=== PATIENT | male | born 1950 | race African-American/Black ===

== ENCOUNTER 2017-02-08 18:34 | Inpatient (IN) | payer MEDICARE, OTHER ==
[~2017-02-08] VITALS: Ht 162.6 cm; Wt 65.8 kg
[~2017-02-08 18:34] MED LIST: ATOR40TA70 PO; CALC667C4 PO; CINA30 PO; COR25 PO; FEBU40TA PO; FOLI1TAB33 PO; FOLI1TAB87 PO; HYDR-4135 PO; NIFE90TA2 PO; SEVE800T PO; SIMV20TA6 PO; WARF5TAB73 PO
[2017-02-09 02:12] LABS: HEMATOCRIT. 37.5 % (42.0-52.0); HEMOGLOBIN. 11.4 g/dL (14.0-18.0); MEAN CORPUSCULAR HGB CONC 30.5 g/dL (31.0-37.0); MEAN CORPUSCULAR VOLUME 85.4 fL (80.0-94.0); MEAN PLATELET VOLUME 6.8 fl (7.4-10.4); PLATELET 155 x1000/uL (130-400); RED BLOOD CELL COUNT 4.39 mill/uL (4.7-6.1); RED CELL DISTRIBUTION WIDTH 19.3 % (11.6-14.6); WHITE BLOOD COUNT 16.1 x1000/uL (4.5-11.0)
[2017-02-09 02:13] LABS: DIFFERENTIAL COMMENT 1
[2017-02-09 02:30] LABS: ALANINE AMINOTRANSFERASE 14 IU/L (13-61); ALBUMIN 2.4 g/dL (3.4-5.0); ANION GAP 14; CALCIUM 9.6 mg/dL (8.5-10.1); CARBON DIOXIDE 31 mEq/L (21-32); CHLORIDE 99 mEq/L (98-107); INDEX HEMOLYSI 1 (1-3); INDEX ICTERIC 1 (1-4); INDEX LIPEMIC 1 (1-3); TROPONIN I 0.21 ng/mL (0.00-0.04); UREA NITROGEN BLOOD 23 mg/dL (7-21); eGFR 13 mL/min (>60)
[2017-02-09 03:21] LABS: HYPOCHROMASIA 1+; NUCLEATED RED BLOOD CELLS 1 /100 WBC; PLATELET ESTIMATE NORMAL
[2017-02-09 03:22] LABS: ANISOCYTOSIS 2+
[2017-02-09] MEDS ORDERED: ACETAMINOPHEN 325MG TABLET PO ONE (05:00)
[2017-02-09 13:30] VITALS: BP 128/81
[2017-02-09 14:00] VITALS: BP 128/81
[2017-02-09 16:00] VITALS: BP 136/97
[2017-02-09 17:12] LABS: INR 1.3
[2017-02-09] MEDS ORDERED: HYDROCODONE/ACETAMINOPHEN 5/325MG TABLET PO PRN (17:15)
[2017-02-09] MEDS ORDERED: CALCIUM ACETATE 667MG CAPSULE PO NR (17:15)
[2017-02-09] MEDS: SEVELAMER CARBONATE 800 MG TABLET PO SCH (18:33)
[2017-02-09] MEDS: CINACALCET HCL 30MG TABLET PO SCH (18:33)
[2017-02-09] MEDS: CALCIUM ACETATE 667MG CAPSULE PO SCH (18:33)
[2017-02-09] MEDS ORDERED: WARFARIN SODIUM 3MG TABLET PO SCH (18:36)
[2017-02-09 20:00] VITALS: BP 120/88
[2017-02-09] MEDS: HYDRALAZINE HCL 50MG TABLET PO SCH ×2 (21:00→21:50)
[2017-02-09] MEDS: ATORVASTATIN CALCIUM 40MG TABLET PO SCH (21:47)
[2017-02-09] MEDS: CARVEDILOL 25MG TABLET PO SCH (21:50)
[2017-02-10] VITALS: BP 106/74
[2017-02-10 04:00] VITALS: BP 98/72
[2017-02-10 08:00] VITALS: BP 112/71
[2017-02-10 08:11] LABS: HEMATOCRIT. 34.2 % (42.0-52.0); HEMOGLOBIN. 10.3 g/dL (14.0-18.0); MEAN CORPUSCULAR HEMOGLOBIN 25.5 pg (28.0-32.0); MEAN CORPUSCULAR HGB CONC 30.1 g/dL (31.0-37.0); MEAN CORPUSCULAR VOLUME 84.7 fL (80.0-94.0); MEAN PLATELET VOLUME 7.2 fl (7.4-10.4); PLATELET 159 x1000/uL (130-400); RED BLOOD CELL COUNT 4.04 mill/uL (4.7-6.1); RED CELL DISTRIBUTION WIDTH 19.5 % (11.6-14.6); WHITE BLOOD COUNT 25.8 x1000/uL (4.5-11.0)
[2017-02-10 08:13] LABS: INR 1.4; PROTHROMBIN TIME 14.7 sec
[2017-02-10 08:18] LABS: DIFFERENTIAL COMMENT 1
[2017-02-10 08:24] LABS: CALCIUM 9.8 mg/dL (8.5-10.1); PHOSPHORUS 7.5 mg/dL (2.5-4.9)
[2017-02-10] MEDS: HYDRALAZINE HCL 50MG TABLET PO SCH ×2 (09:00→21:00)
[2017-02-10] MEDS: CARVEDILOL 25MG TABLET PO SCH ×2 (09:00→21:00)
[2017-02-10] MEDS: CALCIUM ACETATE 667MG CAPSULE PO SCH ×3 (09:11→17:21)
[2017-02-10] MEDS: ALLOPURINOL 100 MG TABLET PO SCH (09:11)
[2017-02-10] MEDS: CINACALCET HCL 30MG TABLET PO SCH (09:11)
[2017-02-10] MEDS: FOLIC ACID/VITAMIN B COMP W-C TABLET PO SCH (09:11)
[2017-02-10] MEDS: SEVELAMER CARBONATE 800 MG TABLET PO SCH ×3 (09:12→17:23)
[2017-02-10] MEDS ORDERED: FLAGYL XX SCH (11:15)
[2017-02-10] MEDS ORDERED: *ZOSYN XX SCH (11:15)
[2017-02-10] MEDS ORDERED: ACETAMINOPHEN 650MG/20.3ML UDC PO PRN (11:15)
[2017-02-10 12:00] VITALS: BP 100/74
[2017-02-10 12:06] LABS: ANISOCYTOSIS 1+
[2017-02-10 12:07] LABS: PLATELET ESTIMATE NORMAL
[2017-02-10 16:00] VITALS: BP 112/78
[2017-02-10] MEDS ORDERED: VANCOMYCIN 1250MG in DEXTROSE 5% WATER 250ML IV NR (16:00)
[2017-02-10] MEDS ORDERED: WARFARIN SODIUM 3MG TABLET PO SCH (18:00)
[2017-02-10 20:00] VITALS: BP 106/70
[2017-02-10] MEDS: PIPERACILLIN/TAZ 2.25G PREMIX 50 ML IV SCH (21:01)
[2017-02-10] MEDS: ATORVASTATIN CALCIUM 40MG TABLET PO SCH (21:02)
[2017-02-10] MEDS: METRONIDAZOLE 500 MG PREMIX 100 ML IV SCH (21:58)
[2017-02-11] VITALS (9 sets, daily range): BP systolic 83–112; BP diastolic 51–80
[2017-02-11] MEDS: METRONIDAZOLE 500 MG PREMIX 100 ML IV SCH ×3 (05:38→21:23)
[2017-02-11 06:10] LABS: CALCIUM 9.6 mg/dL (8.5-10.1)
[2017-02-11 06:21] LABS: HEMATOCRIT. 33.6 % (42.0-52.0); HEMOGLOBIN. 9.9 g/dL (14.0-18.0); MEAN CORPUSCULAR HEMOGLOBIN 25.6 pg (28.0-32.0); MEAN CORPUSCULAR HGB CONC 29.6 g/dL (31.0-37.0); MEAN CORPUSCULAR VOLUME 86.5 fL (80.0-94.0); MEAN PLATELET VOLUME 7.6 fl (7.4-10.4); PLATELET 134 x1000/uL (130-400); RED BLOOD CELL COUNT 3.88 mill/uL (4.7-6.1); RED CELL DISTRIBUTION WIDTH 19.6 % (11.6-14.6); WHITE BLOOD COUNT 29.2 x1000/uL (4.5-11.0)
[2017-02-11 06:50] LABS: DIFFERENTIAL COMMENT 1
[2017-02-11 07:17] LABS: INR 1.8; PROTHROMBIN TIME 19.1 sec
[2017-02-11] MEDS: HYDRALAZINE HCL 50MG TABLET PO SCH ×2 (08:21→21:00)
[2017-02-11] MEDS: CARVEDILOL 25MG TABLET PO SCH ×2 (08:32→21:00)
[2017-02-11] MEDS: PIPERACILLIN/TAZ 2.25G PREMIX 50 ML IV SCH ×3 (08:32→22:25)
[2017-02-11] MEDS: CALCIUM ACETATE 667MG CAPSULE PO SCH ×3 (08:32→17:23)
[2017-02-11] MEDS: CINACALCET HCL 30MG TABLET PO SCH (08:32)
[2017-02-11] MEDS: SEVELAMER CARBONATE 800 MG TABLET PO SCH ×3 (08:32→17:22)
[2017-02-11] MEDS: FOLIC ACID/VITAMIN B COMP W-C TABLET PO SCH (08:32)
[2017-02-11] MEDS: ALLOPURINOL 100 MG TABLET PO SCH (08:34)
[2017-02-11] MEDS: SODIUM HYPOCHLORITE 0.125% 473ML SOLUTION TOP PRN (08:37)
[2017-02-11 10:53] LABS: ANISOCYTOSIS 1+; PLATELET ESTIMATE NORMAL
[2017-02-11] MEDS ORDERED: SODIUM CHLORIDE 0.9% 250ML IV SOLN IV NR (17:13)
[2017-02-11] MEDS ORDERED: WARFARIN SODIUM 3MG TABLET PO NR (18:00)
[2017-02-11] MEDS ORDERED: EPOETIN ALFA 10000UNITS/ML VIAL SUBCUT SCH (21:00)
[2017-02-11] MEDS: ATORVASTATIN CALCIUM 40MG TABLET PO SCH (21:22)
[2017-02-12] VITALS (35 sets, daily range): BP systolic 56–137; BP diastolic 24–92
[2017-02-12] MEDS: PIPERACILLIN/TAZ 2.25G PREMIX 50 ML IV SCH ×2 (05:14→14:04)
[2017-02-12] MEDS: SODIUM HYPOCHLORITE 0.125% 473ML SOLUTION TOP PRN (05:14)
[2017-02-12] MEDS: METRONIDAZOLE 500 MG PREMIX 100 ML IV SCH (05:56)
[2017-02-12] MEDS: CALCIUM ACETATE 667MG CAPSULE PO SCH ×2 (08:42→12:16)
[2017-02-12] MEDS: FOLIC ACID/VITAMIN B COMP W-C TABLET PO SCH (08:42)
[2017-02-12] MEDS: SEVELAMER CARBONATE 800 MG TABLET PO SCH ×2 (08:42→12:16)
[2017-02-12] MEDS: CARVEDILOL 25MG TABLET PO SCH ×2 (08:43→20:30)
[2017-02-12] MEDS: HYDRALAZINE HCL 50MG TABLET PO SCH ×2 (08:43→20:27)
[2017-02-12] MEDS: ALLOPURINOL 100 MG TABLET PO SCH (08:45)
[2017-02-12] MEDS ORDERED: SODIUM CHLORIDE 0.9% 1000ML BAG (SEPSIS BOLUS) IV ONE (11:45)
[2017-02-12] MEDS ORDERED: SODIUM CHLORIDE 0.9% 250 ML IV SCH (12:00)
[2017-02-12 12:11] LABS: HEMATOCRIT. 31.9 % (42.0-52.0); HEMOGLOBIN. 9.6 g/dL (14.0-18.0); MEAN CORPUSCULAR HEMOGLOBIN 25.3 pg (28.0-32.0); MEAN CORPUSCULAR VOLUME 84.5 fL (80.0-94.0); MEAN PLATELET VOLUME 7.2 fl (7.4-10.4); PLATELET 153 x1000/uL (130-400); RED BLOOD CELL COUNT 3.78 mill/uL (4.7-6.1); RED CELL DISTRIBUTION WIDTH 19.3 % (11.6-14.6); WHITE BLOOD COUNT 28.5 x1000/uL (4.5-11.0)
[2017-02-12 12:12] LABS: DIFFERENTIAL COMMENT 1
[2017-02-12 12:22] LABS: CALCIUM 8.9 mg/dL (8.5-10.1)
[2017-02-12 12:24] LABS: PROTHROMBIN TIME 55.7 sec
[2017-02-12 12:41] LABS: INR 5.3
[2017-02-12] MEDS ORDERED: VANCOMYCIN 500 MG PREMIX 100 ML IV SCH (13:00)
[2017-02-12 13:33] LABS: ANISOCYTOSIS 1+; PLATELET ESTIMATE NORMAL
[2017-02-12] MEDS ORDERED: MEROPENEM 500 MG in SODIUM CHLORIDE 0.9% 50 ML IV SCH (16:00)
[2017-02-12 18:46] LABS: CREATINE KINASE 768 IU/L (39-308); INDEX HEMOLYSI 1 (1-3)
[2017-02-12] MEDS: ATORVASTATIN CALCIUM 40MG TABLET PO SCH (21:00)
[2017-02-12] MEDS: NOREPINEPHRINE 8 MG in DEXT 5% WATER 242 ML IV PRN (23:51)
[2017-02-13] VITALS (88 sets, daily range): BP systolic 34–209; BP diastolic 19–117
[2017-02-13 04:30] LABS: CALCIUM 9.3 mg/dL (8.5-10.1)
[2017-02-13 04:33] LABS: MAGNESIUM 2.5 mg/dL (1.8-2.4)
[2017-02-13 04:34] LABS: HEMATOCRIT. 30.8 % (42.0-52.0); HEMOGLOBIN. 9.1 g/dL (14.0-18.0); MEAN CORPUSCULAR HEMOGLOBIN 25.1 pg (28.0-32.0); MEAN CORPUSCULAR HGB CONC 29.7 g/dL (31.0-37.0); MEAN CORPUSCULAR VOLUME 84.5 fL (80.0-94.0); MEAN PLATELET VOLUME 7.8 fl (7.4-10.4); PLATELET 153 x1000/uL (130-400); RED BLOOD CELL COUNT 3.64 mill/uL (4.7-6.1); RED CELL DISTRIBUTION WIDTH 19.2 % (11.6-14.6); WHITE BLOOD COUNT 27.1 x1000/uL (4.5-11.0)
[2017-02-13 04:35] LABS: DIFFERENTIAL COMMENT 1
[2017-02-13 04:53] LABS: INR 3.3; PARTIAL THROMBOPLASTIN TIME 55.5 sec (24.0-34.0); PROTHROMBIN TIME 34.4 sec
[2017-02-13] MEDS: CALCIUM ACETATE 667MG CAPSULE PO SCH ×3 (07:00→16:14)
[2017-02-13] MEDS: SEVELAMER CARBONATE 800 MG TABLET PO SCH ×3 (07:00→16:14)
[2017-02-13] MEDS: HYDRALAZINE HCL 50MG TABLET PO SCH (08:15)
[2017-02-13] MEDS: CARVEDILOL 25MG TABLET PO SCH (08:15)
[2017-02-13] MEDS: ALLOPURINOL 100 MG TABLET PO SCH (08:16)
[2017-02-13] MEDS: FOLIC ACID/VITAMIN B COMP W-C TABLET PO SCH (08:16)
[2017-02-13] MEDS: NOREPINEPHRINE 8 MG in DEXT 5% WATER 242 ML IV PRN ×2 (10:02→15:51)
[2017-02-13 10:10] LABS: ANISOCYTOSIS 1+; PLATELET ESTIMATE NORMAL
[2017-02-13 10:11] LABS: TARGET CELLS 1+
[2017-02-13 10:31] LABS: INR 2.7
[2017-02-13] MEDS ORDERED: BACITRACIN ZINC 15GM TUBE TOP ONE (10:40)
[2017-02-13] MEDS ORDERED: BUPIVACAINE/EPINEPH/PF 0.25%/0.0005 10ML ONE ×2 (10:40→10:41)
[2017-02-13] MEDS ORDERED: BACITRACIN 50,000 UNITS/VIAL ONE (10:42)
[2017-02-13] MEDS ORDERED: NORMAL SALINE 0.9% 10 ML SYR ONE (10:47)
[2017-02-13] MEDS ORDERED: EPINEPHRINE 0.1MG/ML (1:10,000) 10ML SYR ONE ×5 (11:19→12:57)
[2017-02-13] MEDS ORDERED: CALCIUM CHLORIDE 1GM/10ML SYR IV ONE ×2 (11:19→12:09)
[2017-02-13] MEDS ORDERED: DEXTROSE 50% WATER 50ML SYRINGE IV ONE ×2 (11:19→13:16)
[2017-02-13] MEDS ORDERED: ONDANSETRON HCL 4MG/2ML VIAL IV PRN (11:30)
[2017-02-13] MEDS ORDERED: MORPHINE SULFATE 4 MG/ML CPJ (NOT FOR IM USE) IV PRN (11:30)
[2017-02-13] MEDS ORDERED: MORPHINE SULFATE 2 MG/ML CPJ (NOT FOR IM USE) IV PRN (11:30)
[2017-02-13] MEDS ORDERED: ALBUMIN HUMAN 12.5G/250ML (5%) IV ONE (11:31)
[2017-02-13] MEDS ORDERED: SODIUM BICARBONATE 8.4% 1 MEQ/ML 50ML SYR IV ONE ×2 (12:09→12:23)
[2017-02-13] MEDS ORDERED: ATROPINE SULFATE 0.1MG/ML 10ML DISP.SYRIN ONE ×3 (12:10→12:28)
[2017-02-13] MEDS ORDERED: NITROGLYCERIN 50MG PREMIX 250 ML IV ONE (12:10)
[2017-02-13] MEDS ORDERED: SODIUM BICARBONATE 4% (2.4MEQ) 5ML VIAL IV ONE (12:22)
[2017-02-13] MEDS ORDERED: AMIODARONE IV SCH (12:30)
[2017-02-13] MEDS ORDERED: DEXTROSE 5% IV SCH (12:30)
[2017-02-13] MEDS ORDERED: WATER IV SCH (12:30)
[2017-02-13] MEDS ORDERED: EPINEPHRINE 1 MG in SODIUM CHLORIDE 0.9% 250 ML IV ONE (12:45)
[2017-02-13] MEDS ORDERED: SODIUM BICARBONATE 7.5% 0.9 MEQ/ML 50ML SYR IV ONE ×2 (12:56→14:24)
[2017-02-13] MEDS ORDERED: SODIUM CHLORIDE 0.9% IV ONE (13:30)
[2017-02-13] MEDS ORDERED: VASOPRESSIN IV ONE (13:30)
[2017-02-13 14:21] LABS: BG BASE EXCESS -16.3 mmol/L (-2.0-2.0); BG CARBOXYHEMOGLOBIN 0.3 % (0.5-1.5); BG DEOXYHEMOGLOBIN 11.4 % (0.0-5.0); BG FRACTION INSPIRED OXYGEN 100; BG HCO3 ACT 14.6 mmol/L (22.0-26.0); BG METHEMOGLOBIN 0.1 % (0.0-1.5); BG OXYGEN SATURATION 88.6 % (92.0-98.5); BG OXYHEMOGLOBIN 88.2 % (94.0-97.0); BG PCO2 59.5 mmHg (35.0-45.0); BG PH 7.008 (7.350-7.450); BG PO2 83.2 mmHg (75.0-100.0); BG SAMPLE SITE RIGHT BRACHIAL; BG TIDAL VOLUME(mL) 450 mL; BG TOTAL HEMOGLOBIN 10.5 g/dL (12.0-18.0); BG VENT MODE VENT - A/C; BG VENT RATE 14 set
[2017-02-13] MEDS ORDERED: ATROPINE SULFATE 1MG/10ML SYR ONE (14:24)
[2017-02-13] MEDS ORDERED: DOPAMINE 400MG IN DEXT 5% 250ML PREMIX IV ONE (14:24)
[2017-02-13] MEDS ORDERED: AMIODARONE HCL 50MG/ML 3ML VIAL IV ONE (14:24)
[2017-02-13 14:42] LABS: HEMATOCRIT. 35.9 % (42.0-52.0); HEMOGLOBIN. 10.6 g/dL (14.0-18.0); MEAN CORPUSCULAR HEMOGLOBIN 27.1 pg (28.0-32.0); MEAN CORPUSCULAR HGB CONC 29.5 g/dL (31.0-37.0); MEAN PLATELET VOLUME 7.8 fl (7.4-10.4); PLATELET 88 x1000/uL (130-400); RED CELL DISTRIBUTION WIDTH 17.8 % (11.6-14.6); WHITE BLOOD COUNT 22.3 x1000/uL (4.5-11.0)
[2017-02-13] MEDS ORDERED: DOPAMINE 400MG PREMIX 250 ML IV PRN ×2 (14:45→16:15)
[2017-02-13 14:48] LABS: INR 1.7; PROTHROMBIN TIME 17.6 sec
[2017-02-13 14:49] LABS: DIFFERENTIAL COMMENT 1
[2017-02-13 15:01] LABS: MAGNESIUM 2.4 mg/dL (1.8-2.4)
[2017-02-13 15:07] LABS: ANISOCYTOSIS 1+; PLATELET ESTIMATE DECREASED
[2017-02-13 15:13] LABS: PHOSPHORUS 9.6 mg/dL (2.5-4.9); TROPONIN I 4.3 ng/mL (0.00-0.04)
[2017-02-13] MEDS ORDERED: SODIUM BICARBONATE 8.4% 1 MEQ/ML 50ML SYR IV SCH (15:30)
[2017-02-13 15:31] LABS: CHLORIDE 99 mEq/L (98-107); INDEX HEMOLYSI 2 (1-3); INDEX ICTERIC 1 (1-4); INDEX LIPEMIC 1 (1-3)
[2017-02-13 15:39] LABS: ALANINE AMINOTRANSFERASE 94 IU/L (13-61); ALBUMIN 2.3 g/dL (3.4-5.0); ANION GAP 31; CALCIUM 9.9 mg/dL (8.5-10.1); CARBON DIOXIDE 16 mEq/L (21-32); UREA NITROGEN BLOOD 34 mg/dL (7-21); eGFR 15 mL/min (>60)
[2017-02-13] MEDS ORDERED: EPINEPHRINE 4 MG in SODIUM CHLORIDE 0.9% 249 ML IV PRN (16:00)
[2017-02-13] MEDS ORDERED: EPINEPHRINE 1 MG in SODIUM CHLORIDE 0.9% 249 ML IV PRN (16:00)
[2017-02-13] MEDS ORDERED: VASOPRESSIN 10 UNIT in SODIUM CHLORIDE 0.9% 99.5 ML IV PRN ×2 (16:00→16:45)
[2017-02-13] MEDS ORDERED: NOREPINEPHRINE 16 MG in DEXT 5% WATER 234 ML IV PRN (16:00)
[2017-02-13 16:58] LABS: BG BASE EXCESS -2.1 mmol/L (-2.0-2.0); BG CARBOXYHEMOGLOBIN 0.3 % (0.5-1.5); BG FRACTION INSPIRED OXYGEN 100; BG HCO3 ACT 20.8 mmol/L (22.0-26.0); BG METHEMOGLOBIN 0.2 % (0.0-1.5); BG OXYHEMOGLOBIN 98.5 % (94.0-97.0); BG PCO2 29.5 mmHg (35.0-45.0); BG PH 7.466 (7.350-7.450); BG PO2 190.6 mmHg (75.0-100.0); BG SAMPLE SITE RIGHT BRACHIAL; BG TIDAL VOLUME(mL) 700 mL; BG TOTAL HEMOGLOBIN 10.8 g/dL (12.0-18.0); BG VENT MODE VENT - A/C; BG VENT RATE 14 set
[2017-02-13] MEDS ORDERED: VANCOMYCIN 750 MG PREMIX 150 ML IV SCH (21:00)
[2017-02-14 06:40] LABS: HEPATITIS B SURFACE AB 97.9 mIU/mL
[2017-02-14 06:46] LABS: HEPATITIS B SURFACE ANTIGEN NEGATIVE
[2017-02-14 07:15] LABS: HEPATITIS C VIR.AB 0.04 INDEXVAL (0.00-0.80); HEPATITIS C VIR.AB < 0.02 INDEXVAL (0.00-0.80)
[2017-02-14 07:20] LABS: HEPATITIS B SURFACE ANTIGEN NEGATIVE
[2017-02-15 14:33] LABS: HEPATITIS B CORE ANTIBODY Positive (Negative)
== END 2017-02-13 19:31 | disposition expired | DRG 853 ==
LOC: ER 18:35 → 7WST 02-09 05:04 → MICUSO 02-12 18:10
PROVIDERS: ADMIT Specialist; ATTEND Specialist
PROC: 5A12012 Performance of Cardiac Output, Single, Manual (ICD-10-PCS; 2017-02-09)
PROC: 5A1D60Z (ICD-10-PCS; 2017-02-10)
PROC: 0Y6C0Z3 Detachment at Right Upper Leg, Low, Open Approach (ICD-10-PCS; 2017-02-13)
PROC: 30233L1 Transfusion of Nonautologous Fresh Plasma into Peripheral Vein, Percutaneous Approach (ICD-10-PCS; 2017-02-13)
PROC: 30233N1 Transfusion of Nonautologous Red Blood Cells into Peripheral Vein, Percutaneous Approach (ICD-10-PCS; 2017-02-13)
PROC: 30233K1 Transfusion of Nonautologous Frozen Plasma into Peripheral Vein, Percutaneous Approach (ICD-10-PCS; 2017-02-13)
PROC: 02HV33Z Insertion of Infusion Device into Superior Vena Cava, Percutaneous Approach (ICD-10-PCS; 2017-02-13)
PROC: 0BH18EZ Insertion of Endotracheal Airway into Trachea, Via Natural or Artificial Opening Endoscopic (ICD-10-PCS; 2017-02-13)
PROC: 5A1935Z Respiratory Ventilation, Less than 24 Consecutive Hours (ICD-10-PCS; 2017-02-13)
PROC: 0Y6D0Z3 Detachment at Left Upper Leg, Low, Open Approach (ICD-10-PCS; principal; 2017-02-13 09:00)
DX: A41.9 Sepsis, unspecified organism (principal); N18.6 End stage renal disease; G93.40 Encephalopathy, unspecified; R65.21 Severe sepsis with septic shock; E46 Unspecified protein-calorie malnutrition; I13.11 Hypertensive heart and chronic kidney disease without heart failure, with stage 5 chronic kidney disease, or end stage renal disease; I96 Gangrene, not elsewhere classified; L97.919 Non-pressure chronic ulcer of unspecified part of right lower leg with unspecified severity; L97.929 Non-pressure chronic ulcer of unspecified part of left lower leg with unspecified severity; K92.2 Gastrointestinal hemorrhage, unspecified; I46.9 Cardiac arrest, cause unspecified; Z99.2 Dependence on renal dialysis; D63.1 Anemia in chronic kidney disease; E78.5 Hyperlipidemia, unspecified; F17.200 Nicotine dependence, unspecified, uncomplicated; I27.2 Other secondary pulmonary hypertension; I48.0 Paroxysmal atrial fibrillation; M10.00 Idiopathic gout, unspecified site; M24.561 Contracture, right knee; M24.562 Contracture, left knee; E05.90 Thyrotoxicosis, unspecified without thyrotoxic crisis or storm; E21.3 Hyperparathyroidism, unspecified; I35.0 Nonrheumatic aortic (valve) stenosis; B95.62 Methicillin resistant Staphylococcus aureus infection as the cause of diseases classified elsewhere; I44.0 Atrioventricular block, first degree; Z66 Do not resuscitate; R74.8 Abnormal levels of other serum enzymes; N40.0 Benign prostatic hyperplasia without lower urinary tract symptoms; R79.1 Abnormal coagulation profile; T45.515A Adverse effect of anticoagulants, initial encounter; Z79.01 Long term (current) use of anticoagulants; Z80.0 Family history of malignant neoplasm of digestive organs; Z82.49 Family history of ischemic heart disease and other diseases of the circulatory system; Z86.73 Personal history of transient ischemic attack (TIA), and cerebral infarction without residual deficits; Z68.24 Body mass index [BMI] 24.0-24.9, adult
CPT/HCPCS: 36415; 36569; 36600; 71010; 76937; 80048; 80053; 80202; 82375; 82550; 82805; 82962; 83036; 83735; 84100; 84145; 84484; 85025; 85610; 85730; 86850; 86900; 86920; 86927; 87040; 87186; 88307; 88311; 93005; 93306; 93923; 99285; A4216; C1725; J0171; J0282; J0461; J0885; J1265; J2185; J2543; J3370; J3490; J7030; J7050; J7060; P9016; P9017; P9041